=== PATIENT | female | born 1975 | race Caucasian/White ===

== ENCOUNTER 2018-10-17 01:01 | Emergency (ER) | payer OTHER ==
[~2018-10-17] VITALS: Ht 162.6 cm; Wt 63.5 kg
[2018-10-17 03:01] VITALS: BP 110/67
== END 2018-10-17 03:01 | disposition home or self-care (01) ==
LOC: ER 01:01
DX: F10.129 Alcohol abuse with intoxication, unspecified (principal); I10 Essential (primary) hypertension